=== PATIENT | male | born 1950 ===

== ENCOUNTER 2020-10-25 08:00 | Outpatient (CLI) | payer OTHER, MEDICARE ==
--- NOTE | 2020-10-25 12:18 | XRAY Report ---
PROCEDURE: Ankle 3 View LT INDICATIONS: LEFT ANKLE PAIN TECHNIQUE: 3 views of the ankle were acquired. COMPARISON: None FINDINGS: Bones: Small 2 x 3 mm avulsed bone fragment noted adjacent to the lateral margin of the lateral malle olus. Ankle mortise is normally aligned. No suspicious bony lesions. Soft tissues: Tibiotalar joint effusion noted. Achilles tendon appears normal. Lateral soft tissue s welling is noted and ligamentous injury cannot be excluded. IMPRESSION: Small 2 x 3 mm lateral malleolus avulsion fracture. Reviewed by: Michelle Rudd MD, PhD on 10/25/2020 12:16 PM PDT Approved by: Michelle Rudd MD, PhD on 10/25/2020 12:16 PM PDT Station ID: [id number]
--- NOTE | 2020-10-25 12:30 | XRAY Report ---
PROCEDURE: Foot 3 View LT INDICATIONS: LEFT FOOT PAIN TECHNIQUE: 3 views of the foot were acquired. COMPARISON: None FINDINGS: Bones: No fractures or dislocations. No suspicious bony lesions. Soft tissues: No tibiotalar joint effusion. Achilles tendon appears normal. IMPRESSION: No fracture. No osseous lesion. If there are persistent symptoms or continued clinical concern for pa thology, then repeat plain film radiographs (7-10 days) or advanced imaging (CT, MR, bone scan) shoul d be considered for further evaluation. Reviewed by: Michelle Rudd MD, PhD on 10/25/2020 12:28 PM PDT Approved by: Michelle Rudd MD, PhD on 10/25/2020 12:28 PM PDT Station ID: [id number]
== END 2020-10-25 23:59 | disposition home or self-care (01) ==
LOC: DI.S 08:00
PROVIDERS: ATTEND Physician Assistant Medical
DX: M25.572 Pain in left ankle and joints of left foot (principal); S82.65XA Nondisplaced fracture of lateral malleolus of left fibula, initial encounter for closed fracture